=== PATIENT | male | born 1990 | race Caucasian/White ===

== ENCOUNTER 2023-09-18 06:37 | Emergency (ER) | payer OTHER, SELFPAY ==
--- NOTE | ~2023-09-18 | XR_ITS ---
EXAMINATION: XR chest 1V portable 09/18/2023 06:57 INDICATION: Chest burning PROCEDURE: AP portable chest COMPARISON: No prior studies for comparison. FINDINGS: The lungs are clear. The cardiomediastinal silhouette is within normal limits. There are no pleural effusions. There is no pneumothorax suspected. IMPRESSION: 1: NO ACUTE CARDIOPULMONARY DISEASE. Reviewed, dictated and finalized at location B.
[2023-09-18 06:40] VITALS: BP 138/96; PULSE 82; RESP 15; TEMP 36.6; O2SAT 100
--- NOTE | 2023-09-18 06:46 | ECG_ITS ---
[facility] [address] Test Date: 2023-09-18 Pat Name: Stefan Alvarenga Department: Room: Gender: M Representative: : 1990 Requested By: Yancy Pope Order Number: [id number] Jd MD: Landen Garcia M.D. Measurements Intervals Vincent Rate: 62 P: 70 [place]: 134 QRS: -4 QRSD: 117 T: 13 QT: 388 QTc: 395 Interpretive Statements SINUS RHYTHM WITH SINUS ARRHYTHMIA LOW QRS VOLTAGE IN PRECORDIAL LEADS [QRS DEFLECTION < 1.0 mV IN CHEST LEADS] INCOMPLETE RIGHT BUNDLE BRANCH BLOCK [90+ ms QRS DURATION, TERMINAL R IN V1/V2, 40+ ms S IN I/aVL/V4/V5/V6] BORDERLINE ECG No previous ECG available for comparison Electronically Signed On 09-18-2023 07:54:41 CDT by Landen Garcia M.D.
[2023-09-18 07:14] VITALS: BP 120/83; PULSE 56; RESP 20; O2SAT 100
[2023-09-18 07:58] LABS: Basophils Percent Auto 0.4 % (0.2-1.2); Eosinophils Absolute Auto 0.1 K/mm3 (0-0.3); Eosinophils Percent Auto 1.1 % (0-4.4); Hematocrit 41.4 % (42.0-52.0); Hemoglobin 14.3 g/dL (14.0-18.0); Immature Granulocyte Absolute 0.03 K/mm3 (0.00-0.031); Immature Granulocyte Percent A 0.3 % (0-0.5); Lymphocytes Absolute Auto 1.77 K/mm3 (0.9-3.2); Lymphocytes Percent Auto 19.5 % (18.3-44.2); Mean Corpuscular HGB Conc 34.5 g/dl (32-36); Mean Corpuscular Hemoglobin 31.3 pg (26-34); Mean Corpuscular Volume 90.6 fl (80-100); Monocytes Absolute Auto 0.5 K/mm3 (0.1-0.6); Monocytes Percent Auto 5.4 % (2.6-8.5); Neutrophils Absolute Auto 6.6 K/mm3 (1.3-6.7); Neutrophils Percent Auto 73.3 % (45.5-73.1); Platelet Count Result 180 k/mm3 (150-375); Red Blood Count 4.57 M/mm3 (4.6-6.20); Red Cell Distribution Width 11.9 % (11.5-14.5); White Blood Count 9.1 K/mm3 (4.5-10.0)
[2023-09-18 08:17] LABS: Prothrombin Time 13.3 Seconds (11.1-14.7)
[2023-09-18 08:18] LABS: Partial Thromboplastin Time 28.1 Seconds (22.3-36.8)
[2023-09-18 08:42] LABS: Alanine Aminotransferase 33 U/L (6-50); Albumin Level 4.3 g/dL (3.5-5.1); Alkaline Phosphatase 60 U/L (38-126); Anion Gap 6 mmol/L (4-12); Aspartate Amino Transferase 31 U/L (17-59); Bilirubin,Total 0.9 mg/dL (0.2-1.3); Blood Urea Nitrogen 6 mg/dL (9-20); Calcium 9.3 mg/dL (8.4-10.2); Carbon Dioxide 29 mmol/L (22-30); Chloride 104 mmol/L (98-107); Estimated CRCL calculation 131 ml/min; Estimated Glomerular Filt Rate > 60; Glucose 109 mg/dL (65-110); Potassium 3.6 mmol/L (3.4-5.0); Sodium 139 mmol/L (137-145)
[2023-09-18 08:54] LABS: Troponin I < 0.012 ng/mL (0.000-0.034)
--- NOTE | 2023-09-18 09:07 | ED.GENADULT ---
HPI - General Adult General Chief complaint: Anxiety Stated complaint: burning/tightness/anxious Time Seen by Provider: 09/18/23 06:57 History of Present Illness HPI narrative: patient is a 32-year-old male who presents ER with chest pain. Reports he has been under increased stress recently. He was up last night with his daughter who could not sleep. He reports started having tightness of his chest and anxiousness around 4:30 a.m.. He became lightheaded. He had a similar episode several months ago where he had a syncopal event. No formal diagnosis of anxiety. No known cardiac problems. He does not go to a primary care doctor. He reports his dad last 2 years of cancer. Patient reports 20 lb weight loss over last couple months. Reports he eats a smaller portion size but does not think his eating habits have changed that much. No additional complaints or concerns. Related Data Allergies Allergy/AdvReac Type Severity Reaction Status Date / Time No Known Allergies Allergy Verified 09/18/23 06:45 Review of Systems Review of Systems: All systems reviewed & are unremarkable except as noted in HPI and below Constitutional: Constitutional: Reports no additional constitutional complaints ENT: Reports system reviewed and no additional complaints, except as documented Cardiovascular: Cardiovascular: Reports chest pain, Denies rapid heart rate, Denies radiating jaw, neck or arm pain and Denies slow heart rate Respiratory: Respiratory: Reports no additional respiratory complaints Gastrointestinal: Gastrointestinal: Reports no additional gastrointestinal complaints Musculoskeletal: Musculoskeletal: Reports no additional musculoskeletal complaints Neurologic: Reports dizziness, Denies syncope, Denies headache(s) and Denies focal weakness PMFSH Past Medical History Medical History (Updated 09/18/23 @ 09:10 by Brock Perry MD) Healthy adult male Surgical History Surgical History (Updated 09/18/23 @ 09:08 by Brock Perry MD) No history of previous surgery Exam Narrative: GENERAL: Well-appearing, well-nourished, and in no acute distress. HEAD: Normocephalic, atraumatic. ENT: Mucous membranes moist. CHEST: Clear to auscultation. No respiratory distress. HEART: Regular rate and rhythm. Normal peripheral pulses. ABDOMEN: Soft, nontender, nondistended. EXTREMITIES: Normal range of motion. No edema. SKIN: Warm, dry, no rash. NEURO: Alert and oriented x3. PSYCH: Normal mood and affect. Course Course Emergency Course: Patient resting comfortably. Informed of results. Given reassurance. Discharged. Vital Signs Vital signs: Vital Signs Temperature 97.8 F 09/18/23 06:40 Pulse Rate 82 09/18/23 06:40 Respiratory Rate 15 09/18/23 06:40 Blood Pressure 138/96 H 09/18/23 06:40 Pulse Oximetry 100 09/18/23 06:40 Oxygen Delivery Room Air 09/18/23 06:40 Temperature 97.8 F 09/18/23 06:40 Pulse Rate 56 L 09/18/23 07:14 Respiratory Rate 20 09/18/23 07:14 Blood Pressure 120/83 09/18/23 07:14 Pulse Oximetry 100 09/18/23 07:14 Oxygen Delivery Room Air 09/18/23 06:40 Medical Decision Making Vital Signs Vital Signs: Vital Signs Temperature 97.8 F 09/18/23 06:40 Pulse Rate 82 09/18/23 06:40 Respiratory Rate 15 09/18/23 06:40 Blood Pressure 138/96 H 09/18/23 06:40 Pulse Oximetry 100 09/18/23 06:40 Oxygen Delivery Room Air 09/18/23 06:40 Temperature 97.8 F 09/18/23 06:40 Pulse Rate 56 L 09/18/23 07:14 Respiratory Rate 09/18/23 07:14 Blood Pressure 120/83 09/18/23 07:14 Pulse Oximetry 100 09/18/23 07:14 Oxygen Delivery Room Air 09/18/23 06:40 Lab Data 09/18/23 07:47 09/18/23 07:47 Labs: Lab Results 09/18/23 Range/Units 07:47 WBC 9.1 (4.5-10.0) K/mm3 RBC 4.57 L (4.6-6.20) M/mm3 Hgb 14.3 (14.0-18.0) g/dL Hct 41.4 L (42.0-52.0) % MCV 90.6 (80-100)
[2023-09-18 09:18] VITALS: PULSE 76; RESP 20; O2SAT 100
== END 2023-09-18 09:25 | disposition home or self-care (01) ==
PROVIDERS: Emergency Provider Emergency Medicine
DX: F41.9 Anxiety disorder, unspecified (principal)
CPT/HCPCS: 36415; 71045; 80053; 84443; 84484; 85025; 85610; 85730; 93005; 99284